=== PATIENT | male | born 1980 | race African-American/Black ===

== ENCOUNTER 2017-07-01 21:43 | Emergency (ER) | payer OTHER ==
[~2017-07-01] VITALS: Ht 185.4 cm; Wt 74.8 kg
--- NOTE | ~2017-07-01 | CR58 ---
[facility] A Service of [facility] & [facility] RADIOLOGY TEXT RESULTS PATIENT: BERNARD JOSEPH LOCATION: CFTX : 76 UNIT #: [id number] AGE: [address]: Rodriguez Rollins SEX: M ORDER DR: [id number] [facility] [address] [place], [place] [address] [id number] E MR#: [id number] Acc #: [id number] NAME: BERNARD JOSEPH : 1980 SEX: M STUDY DATE/TIME: 07/01/2017 22:17 UNIT: [facility] ROOM: STUDY DESCRIPTION: CR Cervical Spine 2 or 3 Views Attending Physician: Rodriguez Rollins P.A.-C. Ordering Physician: Rodriguez Rollins P.A.-C. Primary Care Physician: No Primary Care Physician MEDICAL IMAGING REPORT This report is preliminary unless electronic signature is present EXAM Cervical series, 07/01/2017 INDICATIONS A 37-year-old male with C-spine pain that began today. No known injury. TECHNIQUE Open mouth odontoid lateral frontal and dedicated odontoid views along with a swimmer's view performed. We have no comparisons. FINDINGS Dens lateral masses appear intact. There is partial obscuration of the left lateral mass. Vertebral body heights and alignment preserved. Cervicothoracic junction intact. No malalignment. There is degenerative disc disease C5-6 and C6-7. Soft tissues unremarkable. IMPRESSION No acute fracture or malalignment. Degenerative changes in the cervical spine most conspicuous at C5-C7 related to degenerative disc disease. Dictated by... Gurpreet Nava M.D. THIS IS AN ELECTRONICALLY VERIFIED REPORT Gurpreet Nava M.D. at 07/02/2017 11:33 PM Arsen TD: 07/02/2017 13:24 JOB #: [id number] MEDICAL IMAGING REPORT Page 1 of 1 COPY
--- NOTE | ~2017-07-01 | CR63 ---
[facility] A Service of [facility] & [facility] RADIOLOGY TEXT RESULTS PATIENT: BERNARD JOSEPH LOCATION: CFTX : 76 UNIT #: [id number] AGE: [address]: Rodriguez Rollins SEX: M ORDER DR: [id number] [facility] [address] [place], [place] [address] [id number] E MR#: [id number] Acc #: [id number] NAME: BERNARD JOSEPH : 1980 SEX: M STUDY DATE/TIME: 07/01/2017 22:21 UNIT: [facility] ROOM: STUDY DESCRIPTION: CR Chest 2 View Attending Physician: Rodriguez Rollins P.A.-C. Ordering Physician: Rodriguez Rollins P.A.-C. Primary Care Physician: Primary Care Physician No MEDICAL IMAGING REPORT This report is preliminary unless electronic signature is present EXAM Two-view chest INDICATION Chest pain today. PROCEDURE Frontal and lateral views of the chest. COMPARISON 07/24/2011. FINDINGS Heart size within normal limits. The lungs are clear. No pleural fluid. No pneumothorax. IMPRESSION No active process. Dictated by... Eduardo Conrad M.D. THIS IS AN ELECTRONICALLY VERIFIED REPORT Eduardo Conrad M.D. at 07/03/2017 10:05 PM JEFF/joanne TD: 07/02/2017 13:18 JOB #: [id number] MEDICAL IMAGING REPORT Page 1 of 1 COPY
--- NOTE | ~2017-07-01 | CR206 ---
[facility] A Service of [facility] & [facility] RADIOLOGY TEXT RESULTS PATIENT: BERNARD JOSEPH LOCATION: CFTX : 76 UNIT #: [id number] AGE: [address]: Rodriguez Rollins SEX: M ORDER DR: [id number] [facility] [address]. [place], [place] [address] [id number] E MR#: [id number] Acc #: [id number] NAME: BERNARD JOSEPH : 1980 SEX: M STUDY DATE/TIME: 07/01/2017 22:22 UNIT: [facility] ROOM: STUDY DESCRIPTION: CR Pelvis 1 or 2 Views Attending Physician: Rodriguez Rollins P.A.-C. Ordering Physician: Rodriguez Rollins P.A.-C. Primary Care Physician: Primary Care Physician No MEDICAL IMAGING REPORT This report is preliminary unless electronic signature is present EXAM Frontal pelvis 07/01/2017 INDICATIONS 37-year-old male complaining of pain in the pelvic area today. No known injury. TECHNIQUE Frontal pelvis COMPARISON Correlate with scanogram from CT 09/12/2013 FINDINGS Bony pelvis is intact. Vascular calcification in the left hemipelvis unchanged. No fracture. IMPRESSION Negative Dictated by... Gurpreet Nava M.D. THIS IS AN ELECTRONICALLY VERIFIED REPORT Gurpreet Nava M.D. at 07/02/2017 11:33 PM CLEM/paulino TD: 07/02/2017 13:16 JOB #: [id number] MEDICAL IMAGING REPORT Page 1 of 1 COPY
[~2017-07-01 21:43] MED LIST: AUGMENTIN PO; DIAZEPAM PO; FLEXERIL PO; GENSING PO; IBUPROFEN PO; KETOPROFEN PO; LEVAQUIN750 MG PO; LORTAB 5/500 TA1 TA1 PO; VICODIN 5/500 T1 TAB PO
== END 2017-07-01 23:10 | disposition home or self-care (01) ==
LOC: CED 21:43 → CFTX 21:43
DX: S13.4XXA Sprain of ligaments of cervical spine, initial encounter (principal); S70.02XA Contusion of left hip, initial encounter; S20.219A Contusion of unspecified front wall of thorax, initial encounter; F17.200 Nicotine dependence, unspecified, uncomplicated; Z87.19 Personal history of other diseases of the digestive system; V49.40XA Driver injured in collision with unspecified motor vehicles in traffic accident, initial encounter; Y92.69 Other specified industrial and construction area as the place of occurrence of the external cause; Y99.0 Civilian activity done for income or pay
CPT/HCPCS: 71020; 72040; 72170; 99284